=== PATIENT | female | born 1950 | race Caucasian/White ===

== ENCOUNTER 2022-07-28 00:58 | Day surgery (SDC) | payer MEDICARE, SELFPAY ==
[2022-07-24 10:17] VITALS: BMI 31.4
[2022-07-28 12:08] VITALS: BP 124/52; PULSE 72; RESP 17; TEMP 36.6; O2SAT 99; BMI 30.9
--- NOTE | 2022-07-28 12:20 | PM.HPGS ---
History of Present Illness History of Present Illness Consent: Risks, benefits, and alternatives have been discussed and questions answered. Patient agrees to proceed with procedure. Chief complaint: colitis Narrative: Tori Flannery is a 71 year old female was had a great deal of diarrhea lately. She has had some improvement with antibiotics per Review of Systems Review of Systems: All systems reviewed & are unremarkable except as noted in HPI and below PMFSH Past Medical History Medical History (Updated 07/28/22 @ 12:48 by Patrice Perales MD) Diabetes HTN (hypertension) with goal to be determined Hyperlipidemia Obesity Surgical History Surgical History H/O nasal septoplasty Family History Family History Father Family history of lung cancer Social History Social History Smoking packs per day: 1 Smoking cigarettes per day: 20.0 Years smoked: 30 Smoking pack-years: 30.00 Smoking status: Former smoker Tobacco type: cigarettes Smoking end date: 08/27/98 Alcohol intake: current Alcohol use details: OCCASIONALLY Substance use: never Substance use type: does not use Living arrangements: with family Spiritual care concerns: No Meds Home Medications and Allergies Home Medications Medication Instructions Recorded Confirmed Type furosemide 20 mg tablet (Lasix) 20 mg PO DAILY 07/24/22 07/28/22 History lisinopril 40 mg tablet (Zestril) 40 mg PO DAILY 07/24/22 07/28/22 History metformin 500 mg tablet 500 mg PO BID 07/24/22 07/28/22 History simvastatin 40 mg tablet (Zocor) 40 mg PO DAILY 07/24/22 07/28/22 History Allergies Allergy/AdvReac Type Severity Reaction Status Date / Time ENVIRONMENTAL Allergy Mild HIVES, Uncoded 07/28/22 12:07 ALLERGENS--RAGWEED, MOLD SINUS PROBLEMS NKDA Allergy Mild Other Uncoded 07/28/22 12:07 Vital Signs Vital Signs - 24 hr 07/28/22 12:08 Temperature 36.6 C Pulse Rate 72 Respiratory Rate 17 Blood Pressure 124/52 L Pulse Oximetry 99 Oxygen Delivery Room Air Exam Const: General: alert Orientation/consciousness: patient oriented x3 Resp: Auscultation: clear to auscultation bilaterally Cardio: Rhythm: regular rhythm GI: GI Palp: Yes Soft to palpation and No Tenderness to palpation present (GI) Neuro: General: patient oriented x3 Assessment and Plan Assessment and plan (1) Chronic diarrhea: Code(s): K52.9 - Noninfective gastroenteritis and colitis, unspecified Status: Acute Assessment and Plan: Colonoscopy with possible biopsy or polypectomy or cautery or injection of substances.
[2022-07-28] MEDS: LACTATED RINGERS 1,000 ML 150 ML IV CONT (12:21)
[2022-07-28 12:22] LABS: Glucose Point of Care 81 mg/dl (65-105)
--- NOTE | 2022-07-28 12:33 | P.PNAN_ITS ---
Anes - Initial Pre Proc Eval Procedure: Operation Date: 07/28/22 13:30 Proposed Procedures p Colonoscopy - Patrice Perales MD Date/Time: 07/28/22 12:33 Surgeon: Patrice Perales MD Pre Op Diagnosis: colitis Patient Data Age: 71 Gender: F Height: 1.65 m Weight: 84.5 kg Last Vital Signs Temp 36.6 C 07/28/22 12:08 Pulse 72 07/28/22 12:08 Resp 17 07/28/22 12:08 BP 124/52 L 07/28/22 12:08 Pulse Ox 99 07/28/22 12:08 O2 Del Method Room Air 07/28/22 12:08 Allergies Allergy/AdvReac Type Severity Reaction Status Date / Time ENVIRONMENTAL Allergy Mild HIVES, Uncoded 07/28/22 12:07 ALLERGENS--RAGWEED, MOLD SINUS PROBLEMS NKDA Allergy Mild Other Uncoded 07/28/22 12:07 Home Medications Medication Instructions Recorded Confirmed Type furosemide 20 mg tablet (Lasix) 20 mg PO DAILY 07/24/22 07/28/22 History lisinopril 40 mg tablet (Zestril) 40 mg PO DAILY 07/24/22 07/28/22 History metformin 500 mg tablet 500 mg PO BID 07/24/22 07/28/22 History simvastatin 40 mg tablet (Zocor) 40 mg PO DAILY 07/24/22 07/28/22 History Laboratory Tests 07/28/22 12:15 POC Capillary Glucose 81 mg/dl mg/dl (65-105) Patient hx anesthesia problems: none Family hx anesthesia problems: none Results Review: All pre-operative results and documents have been reviewed as part of the pre- operative evaluation. FOR[facility]LY [facility], [facility] Past Medical History Medical History (Updated 07/28/22 @ 12:34 by Tomi Kamara MD) Diabetes HTN (hypertension) with goal to be determined Hyperlipidemia Obesity Surgical History Surgical History (Updated 07/28/22 @ 12:34 by Tomi Kamara MD) H/O nasal septoplasty Family History Family History Father Family history of lung cancer Social History Social History Smoking packs per day: 1 Smoking cigarettes per day: 20.0 Years smoked: 30 Smoking pack-years: 30.00 Smoking status: Former smoker Tobacco type: cigarettes Smoking end date: 08/27/98 Alcohol intake: current Alcohol use details: OCCASIONALLY Substance use: never Substance use type: does not use Living arrangements: with family Spiritual care concerns: No Anes - Eval Final PreProcedure Day of Procedure 07/28/22 12:33 Patient weight: obese Heart: regular rate and rhythm Lungs: clear to auscultation Airway: Mallampati scale class II Neurological: alert and oriented Last oral intake: >/= 8 hours ASA classification: III Emergent: no Anesthetic plan: proceed Anesthesia type and monitoring: general GIVS and standard monitoring Results Review: All pre-operative results and documents have been reviewed as part of the pre- operative evaluation. Informed Consent: The patient's anesthetic plan and its attendant risks and benefits were discussed with the patient/family/POA. Questions were solicited and answers provided to the satisfaction of the patient/family/POA.
[2022-07-28 13:15] VITALS: BP 92/47; PULSE 80; RESP 23; O2SAT 99
[2022-07-28 13:25] VITALS: BP 103/60; PULSE 82; RESP 23; O2SAT 99
[2022-07-28 13:35] VITALS: BP 134/65; PULSE 73; RESP 16; O2SAT 98
== END 2022-07-28 14:11 | disposition home or self-care (01) ==
PROVIDERS: PCP Physician Assistant; Visit Provider Internal Medicine Gastroenterology
PROC: 0DJD8ZZ Inspection of Lower Intestinal Tract, Via Natural or Artificial Opening Endoscopic (ICD-10-PCS; CPT 45378; principal; 2022-07-28 13:30)
DX: R19.7 Diarrhea, unspecified (principal); K57.30 Diverticulosis of large intestine without perforation or abscess without bleeding; I10 Essential (primary) hypertension; E11.9 Type 2 diabetes mellitus without complications; E78.5 Hyperlipidemia, unspecified; Z79.84 Long term (current) use of oral hypoglycemic drugs; E66.9 Obesity, unspecified; Z68.31 Body mass index [BMI] 31.0-31.9, adult; Z87.891 Personal history of nicotine dependence
CPT/HCPCS: 45380; 82948; 88305; J2704; J7120

== ENCOUNTER 2023-06-18 09:06 | Outpatient (CLI) | payer MEDICARE, SELFPAY ==
--- NOTE | ~2023-06-18 | XR_ITS ---
EXAMINATION: XR UGIAC wo kub DATE: 06/18/2023 09:43 INDICATION: Dysphagia. Persistent coughing. TECHNIQUE: The patient drank thick barium, gas-producing crystals, and thin barium. A total of 543 fl uoroscopic images of the esophagus, stomach, and proximal small bowel were obtained. Fluoroscopy expo sure time was 1.9 minutes. Total DAP was 16.128 Gycm^2 COMPARISON: None. FINDINGS: The esophagus is normal without mass or stricture. Esophageal motility is normal. There is no hiatal hernia. There was no gastroesophageal reflux with provocative maneuvers. The stomach is nor mal. There is a diverticulum arising from the medial side of the second portion of the duodenum. IMPRESSION: 1. Incidental duodenal diverticulum. Otherwise normal upper GI study. Reviewed, dictated and finalized at location A.
== END 2023-06-18 09:07 | disposition home or self-care (01) ==
PROVIDERS: PCP Physician Assistant; Visit Provider Physician Assistant
DX: R13.19 Other dysphagia (principal); K57.10 Diverticulosis of small intestine without perforation or abscess without bleeding
CPT/HCPCS: 74246

== ENCOUNTER 2023-08-02 12:43 | Emergency (ER) | payer MEDICARE, SELFPAY ==
[2023-08-02 12:58] VITALS: BP 123/58; PULSE 54; RESP 16; TEMP 36.3; O2SAT 100
--- NOTE | 2023-08-02 13:26 | ED.URI ---
HPI - URI/Sore Throat General Chief Complaint: Upper Respiratory Infection Stated Complaint: COUGH/CONGESTION/NOT SLEEPING & L TOE PAIN Time Seen by Provider: 08/02/23 13:27 Source: patient Mode of arrival: ambulatory Limitations: no limitations History of Present Illness HPI Narrative: 72-year-old female with history hypertension and gout presented for complaints cough and chest congestion for 2 weeks. Endorses hoarse voice this week. Cough is worse at night, keeping her awake. Denies sob, wheezing, n/v/d/f/c or fatigue. Pt also c/o gout to left great toe for about 1 week. States she was prescribed low dose prednisone, without relief. Pt has stopped her methotrexate, and started taking her 's indomethacin. Also applied diclofenac cream to the site and covered with a bandage. Now reports a small blister to the inner aspect of the great toe. Related Data Home Medications Medication Instructions Recorded Confirmed furosemide 20 mg tablet (Lasix) 20 mg PO DAILY 07/24/22 07/28/22 lisinopril 40 mg tablet (Zestril) 40 mg PO DAILY 07/24/22 07/28/22 metformin 500 mg tablet 500 mg PO BID 07/24/22 07/28/22 simvastatin 40 mg tablet (Zocor) 40 mg PO DAILY 07/24/22 07/28/22 escitalopram oxalate 10 mg tablet mg 08/02/23 folic acid 1 mg tablet 08/02/23 methotrexate sodium 2.5 mg tablet mg 08/02/23 prednisone 5 mg tablet mg 08/02/23 Allergies Allergy/AdvReac Type Severity Reaction Status Date / Time ENVIRONMENTAL Allergy Mild HIVES, Uncoded 08/02/23 12:56 ALLERGENS--RAGWEED, MOLD SINUS PROBLEMS NKDA Allergy Mild Other Uncoded 08/02/23 12:56 Review of Systems Review of Systems: CONSTITUTIONAL: Denies body aches, fever, chills, or sweats. EYES: Denies visual changes, redness, or discharge. ENT: Denies rhinorrhea, congestion, sore throat, or otalgia. CARDIOVASCULAR: Denies chest pain, palpitations, or edema. RESPIRATORY: Reports cough, denies sob, wheezing. GASTROINTESTINAL: Denies abdominal pain, nausea, vomiting, or diarrhea. GENITOURINARY: Denies dysuria or hematuria. SKIN: Denies rash, itching, or wounds. MUSCULOSKELETAL: Reports toe pain Denies back pain, or myalgia. NEUROLOGIC: Denies headache, numbness, tingling, or weakness. All systems reviewed & are unremarkable except as noted in HPI and below PMFSH Past Medical History Medical History Diabetes HTN (hypertension) with goal to be determined Hyperlipidemia Obesity Surgical History Surgical History H/O nasal septoplasty Family History Family History Father Family history of lung cancer Social History Social History Smoking packs per day: 1 Smoking cigarettes per day: 20.0 Years smoked: 30 Smoking pack-years: 30.00 Smoking status: Former smoker Tobacco type: cigarettes Smoking end date: 08/27/98 Alcohol intake: current Alcohol use details: OCCASIONALLY Substance use: never Substance use type: does not use Living arrangements: with family Spiritual care concerns: No Comments At time of signature, I have reviewed and agree with nursing past medical, surgical, social and family history unless otherwise noted. Please see nursing chart for further information. There is no relevant family history pertinent to the presenting complaint Exam Narrative: GENERAL: Well-appearing, in no acute distress. EYES: EOMI. No redness or drainage. Conjunctivae normal. ENT: Mucous membranes pink and moist. No rhinorrhea. TMs normal bilaterally. Throat normal. Uvula midline. NECK: Normal AROM. Supple. CHEST: No respiratory distress. Lungs clear to all busch. HEART: Regular rate and rhythm. No murmur appreciated. ABDOMEN: Soft, nontender, nondistended, normal active bowel sounds. EXTREMITIES: Normal
== END 2023-08-02 13:55 | disposition home or self-care (01) ==
PROVIDERS: Emergency Provider Nurse Practitioner Family; PCP Physician Assistant
DX: J40 Bronchitis, not specified as acute or chronic (principal); M10.9 Gout, unspecified; Z87.891 Personal history of nicotine dependence; E11.9 Type 2 diabetes mellitus without complications; I10 Essential (primary) hypertension; E78.5 Hyperlipidemia, unspecified; E66.9 Obesity, unspecified; Z68.31 Body mass index [BMI] 31.0-31.9, adult
CPT/HCPCS: 99213; G0463

== ENCOUNTER 2024-03-31 15:15 | Emergency (ER) | payer MEDICARE, SELFPAY ==
--- NOTE | ~2024-03-31 | XR_ITS ---
EXAM: XR hand LT min 3V DATE: 03/31/2024 16:22 HISTORY: fall 3 weeks ago 5th metacarpal tenderness . COMPARISON: None available. FINDINGS: Decreased mineralization. No fracture or dislocation. No lytic or blastic lesion. Mild nils yarticular osteoarthritis. No erosion or periosteal change. Soft tissues within normal limits. IMPRESSION: No acute osseous finding in the left hand. Reviewed, dictated and finalized at location K.
[2024-03-31 15:27] VITALS: BP 136/43; PULSE 68; RESP 16; TEMP 36.9; O2SAT 97
--- NOTE | 2024-03-31 16:08 | ED.UPPEXIN ---
HPI - Extremity Injury (Upper) General Chief Complaint: Extremity Injury, Upper Stated Complaint: Left Hand/ Hip Pain Time Seen by Provider: 03/31/24 16:05 Source: patient, RN notes reviewed and old records reviewed Mode of arrival: ambulatory Limitations: no limitations History of Present Illness HPI narrative: 73-year-old female presents to the [facility] with lateral left hand pain since falling 3 weeks ago. Has tenderness mid 5th metacarpal. States that she has been taking naproxen Onset (ago): week(s) (3) Related Data Home Medications Medication Instructions Recorded Confirmed furosemide 20 mg tablet (Lasix) 20 mg PO DAILY 07/24/22 08/02/23 lisinopril 40 mg tablet (Zestril) 40 mg PO DAILY 07/24/22 08/02/23 metformin 500 mg tablet 500 mg PO BID 07/24/22 08/02/23 simvastatin 40 mg tablet (Zocor) 40 mg PO DAILY 07/24/22 08/02/23 escitalopram oxalate 10 mg tablet 10 mg PO DAILY 08/02/23 08/02/23 folic acid 1 mg tablet 1 mg PO DAILY 08/02/23 08/02/23 methotrexate sodium 2.5 mg tablet 2.5 mg PO USEASDIRECTD 08/02/23 08/02/23 prednisone 5 mg tablet 5 mg PO DAILY PRN flare 08/02/23 08/02/23 Allergies Allergy/AdvReac Type Severity Reaction Status Date / Time mold Allergy Hives Verified 03/31/24 16:01 ragweed pollen Allergy Hives Verified 03/31/24 16:01 Review of Systems Review of Systems: All systems reviewed & are unremarkable except as noted in HPI and below Constitutional: Constitutional: Reports no additional constitutional complaints Eyes: Eyes: Reports no additional eye complaints ENT: Reports system reviewed and no additional complaints, except as documented Cardiovascular: Cardiovascular: Reports no additional cardiovascular complaints, Denies chest pain and Denies dyspnea Respiratory: Respiratory: Reports no additional respiratory complaints, Denies chest congestion, Denies cough and Denies dyspnea Gastrointestinal: Gastrointestinal: Reports no additional gastrointestinal complaints, Denies abdominal pain, Denies nausea and Denies vomiting Musculoskeletal: Musculoskeletal: Reports as per HPI Integumentary/Breasts: Skin/Breast: Reports system reviewed and no additional complaints, except as docu Neurologic: Reports system reviewed and no additional complaints, except as documented Psychiatric: Psychiatric: Reports no additional psychiatric complaints Allergic/Immunologic: Allergic/Immunologic: Reports no additional allergic/immunologic complaints PMF Past Medical History Medical History Diabetes HTN (hypertension) with goal to be determined Hyperlipidemia Obesity Surgical History Surgical History H/O nasal septoplasty Family History Family History Father Family history of lung cancer Social History Social History Smoking packs per day: 1 Smoking cigarettes per day: 20.0 Years smoked: 30 Smoking pack-years: 30.00 Smoking status: Former smoker Tobacco type: cigarettes Smoking end date: 08/27/98 Alcohol intake: current Alcohol use details: OCCASIONALLY Substance use: never Substance use type: does not use Living arrangements: with family Spiritual care concerns: No Comments At the time of my signature, I reviewed and agree with the nursing past medical, surgical, social, and family history. There is no relevant family history pertinent to the patient complaint. Exam Const: General: cooperative, healthy appearing, comfortable, no acute distress, well developed, alert and well nourished Nutritional Appearance: well nourished Orientation/consciousness: patient oriented x3 Limitations: no limitations HENMT: Head: normal to inspection Ears: hearing grossly normal bilaterally and external ears normal Face/Nose/Sinus: Normal external nose prese
== END 2024-03-31 16:40 | disposition home or self-care (01) ==
PROVIDERS: Emergency Provider Nurse Practitioner; PCP Physician Assistant
DX: S60.222A Contusion of left hand, initial encounter (principal); W19.XXXA Unspecified fall, initial encounter; E11.9 Type 2 diabetes mellitus without complications; I10 Essential (primary) hypertension; E78.5 Hyperlipidemia, unspecified; E66.9 Obesity, unspecified; Z68.33 Body mass index [BMI] 33.0-33.9, adult; Z87.891 Personal history of nicotine dependence
CPT/HCPCS: 73130; 99213; G0463

== ENCOUNTER 2024-07-09 10:19 | Outpatient (CLI) | payer MEDICARE, SELFPAY ==
--- NOTE | ~2024-07-09 | CT_ITS ---
EXAMINATION: CT lung screening DATE: 07/09/2024 10:35 INDICATION: personal hx of nicotine dependence TECHNIQUE: Computed tomography (CT) of the chest was performed without intravenous contrast. Addition al 3D reconstructions utilizing coronal maximum intensity projection (MIP) were performed. Automated exposure control and iterative reconstruction technique were employed. The dose-length product was 17 0.40 mGy-cm. COMPARISON: None FINDINGS: Minimal right apical pleural-parenchymal scarring. Mild scattered discoid atelectasis in the lingula, right middle and right lower lobes. There are few scattered bilateral 2 mm smaller pulmonary nodules . No pneumonia, pulmonary edema or pleural effusion. Heart size is normal. Atherosclerotic coronary a rtery calcification. No pericardial effusion. Aorta is normal in caliber. No pathologically enlarged thoracic lymphadenopathy. Partially visualized gallstone at the neck of the gallbladder. IMPRESSION: 1. Lung-RADS category 2: Benign appearance or behavior. Continue annual screening with noncontrast lo w-dose chest CT in 12 months. Reviewed, dictated and finalized at location B. [facility] IMPRESSION: 1. Lung-RADS category 2: Benign appearance or behavior. Continue annual screeni ng with noncontrast low-dose chest CT in 12 months.
== END 2024-07-09 10:20 | disposition home or self-care (01) ==
LOC: GOSHIMG 10:23
PROVIDERS: PCP Physician Assistant; Visit Provider Physician Assistant
DX: Z12.2 Encounter for screening for malignant neoplasm of respiratory organs (principal); Z87.891 Personal history of nicotine dependence
CPT/HCPCS: 71271

== ENCOUNTER 2025-01-07 13:00 | Emergency (ER) | payer MEDICARE, SELFPAY ==
--- NOTE | ~2025-01-07 | XR_ITS ---
Clinical Indication: Cough PA and lateral views of the chest: Comparison: None Findings: The lungs are clear, without evidence of focal consolidation or pleural effusion. Cardiome diastinal silhouette is within normal limits. Bones and soft tissues are unremarkable. Impression: Normal chest. Reviewed, dictated and finalized at location . Impression: Normal chest.
[2025-01-07 13:13] VITALS: BP 130/62; PULSE 62; RESP 16; TEMP 36.4; O2SAT 98
--- NOTE | 2025-01-07 13:35 | ED.URI ---
HPI - URI/Sore Throat General Chief Complaint: Upper Respiratory Infection Stated Complaint: cough Source: patient Mode of arrival: ambulatory Limitations: no limitations History of Present Illness HPI Narrative: 74-year-old female presents [facility] complaining of cough for 1 month. Patient reports having productive and nonproductive cough at times throughout the day. Patient states she has been coughing some yellow sputum. Patient denies any chest pain shortness of breath. She denies any other upper respiratory symptoms. Patient states recently she ripped up carpet in her basement and found that there was mold growing in her basement. The only time the patient is in her basement is to do laundry she says. Patient tried taking her prednisone that she uses for psoriatic arthritis stated the not help with her symptoms. Patient denies any rash or hives to her body. Related Data Home Medications Medication Instructions Recorded Confirmed Last Taken Type furosemide 20 mg tablet (Lasix) 20 mg PO DAILY 07/24/22 08/02/23 Unknown History lisinopril 40 mg tablet (Zestril) 40 mg PO DAILY 07/24/22 08/02/23 Unknown History metformin 500 mg tablet 500 mg PO BID 07/24/22 08/02/23 Unknown History simvastatin 40 mg tablet (Zocor) 40 mg PO DAILY 07/24/22 08/02/23 Unknown History escitalopram oxalate 10 mg tablet 10 mg PO DAILY 08/02/23 08/02/23 Unknown History folic acid 1 mg tablet 1 mg PO DAILY 08/02/23 08/02/23 Unknown History methotrexate sodium 2.5 mg tablet 2.5 mg PO USEASDIRECTD 08/02/23 08/02/23 Unknown History allopurinol 300 mg tablet mg 01/07/25 Unknown History omeprazole 40 mg capsule,delayed mg 01/07/25 Unknown History release tirzepatide 12.5 mg/0.5 mL mg subcut 01/07/25 Unknown History subcutaneous pen injector (Mounjaro) Allergies Allergy/AdvReac Type Severity Reaction Status Date / Time mold Allergy Hives Verified 01/07/25 13:14 ragweed pollen Allergy Hives Verified 01/07/25 13:14 Review of Systems Review of Systems: CONSTITUTIONAL: Denies fever, chills, body aches, or sweats. EYES: Denies visual changes, redness, or discharge. ENT: Negative for rhinorrhea, congestion, sore throat, or otalgia. CARDIOVASCULAR: Denies chest pain, palpitations, or edema. RESPIRATORY: Positive for cough. Negative for dyspnea. GASTROINTESTINAL: Denies abdominal pain, nausea, vomiting, or diarrhea. GENITOURINARY: Denies dysuria or hematuria. SKIN: Denies rash or itching. MUSCULOSKELETAL: Denies back pain, joint pain, or myalgia. NEUROLOGIC: Denies headache, numbness, or weakness. PSYCHIATRIC: Denies anxiety or depression. All other systems reviewed are negative, except as documented in HPI. [facility] Past Medical History Medical History Diabetes Hyperlipidemia HTN (hypertension) with goal to be determined Obesity Surgical History Surgical History H/O nasal septoplasty Family History Family History Father Family history of lung cancer Social History Social History Smoking packs per day: 1 Smoking cigarettes per day: 20.0 Years smoked: 30 Smoking pack-years: 30.00 Smoking status: Former smoker Tobacco type: cigarettes Smoking end date: 08/27/98 Alcohol intake: current Alcohol use details: OCCASIONALLY Substance use: never Substance use type: does not use Living arrangements: with family Spiritual care concerns: No Comments At the time of my signature, I reviewed and agree with the nursing past medical, surgical, social, and family history. There is no relevant family history pertinent to the patient complaint. Exam Narrative: GENERAL: This is a well-nourished, well-developed adult, in no apparent distress. They are non ill-appearing, nontoxic appearing. HEAD: normocephalic, atraumatic. EYES: Sclera clear/white. Vision is grossly intact. Conjunctiva normal bilaterally. Extraocular movements intact. EARS: External ears normal, auditory canals clear and without drainage, TMs without erythema or perforation. Hearing grossly intact. NOSE: External nose normal with no obvious nasal discharge, nasal turbinates without redness or swelling, no rhinorrhea. THROAT: Mucous membranes moist, posterior pharynx clear without redness or swelling. Uvula is midline. NECK: Neck supple, non-tender without lymphadenopathy, masses or thyromegaly. CARDIOVASCULAR: Regular rate and rhythm without murmurs, gallops, or rubs. RESPIRATORY: Rales present to the bilateral mid and lower lobes.. Breath sounds equal bilaterally. No wheezes, or rhonchi. SKIN: warm, Dry, intact with no suspicious lesions or rash, good texture and turgor. NEURO: awake, alert, and oriented to person, place and time. There were no obvious focal neurologic abnormalities. EXTREMITIES: No joint tenderness, effusion, or edema noted. BACK: Nontender without deformity. Course Course Emergency Course: Portions of this record may have been created with voice recognition software Level of Care: Express Care Visit Vital Signs Vital signs: Vital Signs Oxygen Delivery Room Air 01/07/25 13:09 Temperature 97.6 F 01/07/25 13:13 Pulse Rate 62 01/07/25 13:13 Respiratory Rate 16 01/07/25 13:13 Blood Pressure 130/62 01/07/25 13:13 Pulse Oximetry 98 01/07/25 13:13 Oxygen Delivery Room Air 01/07/25 13:09 MDM - URI/Sore Throat MDM Narrative Medical decision making narrative: Chest x-ray was negative for any evidence of pneumonia or acute findings. Given patient's symptoms will go ahead and treat her for bacterial bronchitis given her length of symptoms and mucopurulent sputum. Given her allergy to mold it may be irritating her as well. Advised patient to address the mold issue in her basement and 2 have it removed. She denies any mold in and the part of the house where she sleeps which is not in the basement. Will give her as needed albuterol inhaler for wheezing, cough, or shortness of breath. Will prescribe levofloxacin for antibiotic treatment. Will give her 750 mg since she is on immunosuppressants. She is on medications that may interact with penicillins and cephalosporins so they were avoided for treatment option.. Discussed physical exam findings. Advised supportive measures and signs/symptoms to go to the ER. Pt is appropriate for outpt treatment and f/u. Differential Diagnosis Differential diagnosis: Likely upper respiratory infection and other (Pneumonia, bronchitis) Discharge Plan Discharge Clinical Impression: Purulent bronchitis Patient Disposition: Home Condition: Stable Instructions: Antibiotic Form, Pneumonia (ED) Additional Instructions: Your chest x-ray was negative for any evidence of pneumonia or acute findings. You likely a bacterial bronchitis given your length of symptoms. Please take the antibiotics as directed. You may use the albuterol inhaler as needed for cough, wheezing, or shortness of breath. Please follow-up with primary care provider in 3-5 days. If your symptoms worsen, he developed difficulty breathing, fevers, or any other concerns please go to the ER immediately. Patient Language: Spanish Prescriptions: New levofloxacin 750 mg tablet 750 mg PO DAILY 5 Days Qty: 5 0RF albuterol sulfate [Ventolin HFA] 90 mcg/actuation HFA aerosol inhaler 2 puff inhalation QID PRN (Reason: shortness of breath or wheezing) Qty: 8.5 0RF No Action methotrexate sodium 2.5 mg tablet 2.5 mg PO USEASDIRECTD folic acid 1 mg tablet 1 mg PO DAILY escitalopram oxalate 10 mg tablet 10 mg PO DAILY prednisone 20 mg tablet See Rx Instructions .ROUTE .COMPLEX Qty: 14 0RF Rx Instructions: Take 2 tablets daily for 4 days, then 1 tablet daily for 4 days, then 0.5 tablet daily for 4 days then stop omeprazole 40 mg capsule,delayed release(DR/EC) allopurinol 300 mg tablet Mounjaro 12.5 mg/0.5 mL pen injector SUBCUT metformin 500 mg Tablet 500 mg PO BID simvastatin [Zocor] 40 mg tablet 40 mg PO DAILY furosemide [Lasix] 20 mg tablet 20 mg PO DAILY lisinopril [Zestril] 40 mg tablet 40 mg PO DAILY Follow-up/Referrals: Tabby,SHABNAM Robles [Primary Care Provider] - Time of Disposition: 14:15
== END 2025-01-07 14:18 | disposition home or self-care (01) ==
PROVIDERS: PCP Physician Assistant
DX: J41.1 Mucopurulent chronic bronchitis (principal); E11.9 Type 2 diabetes mellitus without complications; Z79.84 Long term (current) use of oral hypoglycemic drugs; I10 Essential (primary) hypertension; E78.5 Hyperlipidemia, unspecified; E66.9 Obesity, unspecified; Z68.33 Body mass index [BMI] 33.0-33.9, adult; Z87.891 Personal history of nicotine dependence
CPT/HCPCS: 71046; 99213; G0463

== ENCOUNTER 2025-07-30 09:54 | Outpatient (CLI) | payer MEDICARE, SELFPAY ==
--- NOTE | ~2025-07-30 | CT_ITS ---
EXAMINATION: CT lung screening DATE: 07/30/2025 10:10 INDICATION: Personal history of nicotine dependence TECHNIQUE: Computed tomography (CT) of the chest was performed without intravenous contrast. The dose-length product was 145.16 mGy-cm. Automated exposure control and iterative reconstruction technique were employed. COMPARISON: CT dated 07/09/2024 FINDINGS: There are groundglass nodules in the lingula and left lower lobe, most likely infectious/inflammatory. Largest measures 6 mm in the lingula. No endobronchial lesions. There is right upper lobe atelectasis/scarring. No significant pleural or pericardial effusion. No thoracic lymphadenopathy. There are gallstones. IMPRESSION: 1. Lung-RADS category 3: Probably benign. Further evaluation is recommended with noncontrast low-dose chest CT in 6 months. Reviewed, dictated and finalized at location I. [employer] IMPRESSION: 1. Lung-RADS category 3: Probably benign. Further evaluation is recommended wit h noncontrast low-dose chest CT in 6 months.
== END 2025-07-30 09:55 | disposition home or self-care (01) ==
LOC: MICIMG 09:55
PROVIDERS: PCP Physician Assistant; Visit Provider Physician Assistant
DX: Z12.2 Encounter for screening for malignant neoplasm of respiratory organs (principal); Z87.891 Personal history of nicotine dependence; R91.8 Other nonspecific abnormal finding of lung field
CPT/HCPCS: 71271